=== PATIENT | female | born 1990 | race African-American/Black ===

== ENCOUNTER 2020-10-08 09:07 | Inpatient (IN) | payer OTHER ==
--- NOTE | 2020-10-01 14:45 | History and Physical Report ---
History of Present Illness Date of examination: 10/01/20 Chief complaint: repeat c/s History of present illness: 29 yo at 39w4d c/b hx prior c/s x 1, elevated 1hr GTT, nl 3hr GTT, Vit D deficiency presents for repeat c section. Denies labor complaints or PIH symptoms. +FM. Past History Past Medical History: no pertinent history Past Surgical History: section (x1) Family/Genetic History: hypertension Social history: no significant social history - Obstetrical History : 2 Para: 1 Hx # Term Pregnancies: 1 Number of Living Children: 1 Review of Systems All systems: negative (expect HPI) - Physical Exam Abdomen: Positive: normal appearance, normal bowel sounds, other (gravid) - Obstetrical FHR: category 1 Uterine Contraction Monitor Mode: External Uterine Contraction Pattern: Absent Results All other labs normal. Assessment and Plan - Patient Problems (1) H/O section Status: Acute Plan to address problem: --To OR for repeat c section --Consented in the chart --Questions solicited and answered --For future fertility, --GBS neg
[2020-10-08] MEDS ORDERED: LACTATED RINGERS 2,000 ML ONE (10:30)
[2020-10-08] MEDS: LACTATED RINGERS 1,000 ML IV SCH ×2 (10:37→17:59)
[2020-10-08 10:44] LABS: Basophils % (Auto) 0.2 % (0.0-1.8); Eosinophils # (Auto) 0.1 K/mm3 (0.0-0.4); Eosinophils % (Auto) 0.9 % (0.0-4.3); Hematocrit 40.3 % (30.3-42.9); Hemoglobin 13.3 gm/dl (10.1-14.3); Lymphocytes # (Auto) 1.4 K/mm3 (1.2-5.4); Lymphocytes % (Auto) 18.7 % (13.4-35.0); Mean Corpuscular HGB Conc 33 % (30-34); Mean Corpuscular Volume 94 fl (79-97); Monocytes # (Auto) 0.6 K/mm3 (0.0-0.8); Monocytes % (Auto) 7.7 % (0.0-7.3); Platelet Count 227 K/mm3 (140-440); Red Cell Distribution Width 13.9 % (13.2-15.2)
[2020-10-08] MEDS ORDERED: ceFAZolin/Water 2 GM/20 ML 2 GM/20 ML SYRINGE IV NR (11:00)
[2020-10-08] MEDS ORDERED: METOCLOPRAMIDE 10 MG/2 ML INJ IV NR (11:00)
[2020-10-08] MEDS ORDERED: BICITRA ORAL LIQD 30ML PO NR (11:00)
[2020-10-08] MEDS ORDERED: OXYTOCIN DRIP 30 UNITS/500 ML BAG IV SCH ×2 (11:00→14:00)
[2020-10-08] MEDS ORDERED: FAMOTIDINE 20 MG/2 ML INJ IV NR (11:00)
--- NOTE | 2020-10-08 11:00 | Anesthesia Consultation ---
Anesthesia Consult and Med Hx Date of service: 10/08/20 - Airway Anesthetic Teeth Evaluation: Good ROM Head & Neck: Adequate Mental/Hyoid Distance: Adequate Mallampati Class: Class II Intubation Access Assessment: Probably Good - Pulmonary Exam CTA: Yes - Cardiac Exam Cardiac Exam: RRR - Pre-Operative Health Status ASA Pre-Surgery Classification: ASA2 Proposed Anesthetic Plan: Spinal - Pulmonary Hx Asthma: No - Cardiovascular System Hx Hypertension: No - Central Nervous System Hx Seizures: No Hx Psychiatric Problems: No - Endocrine Hx Renal Disease: No Hx Hypothyroidism: No Hx Hyperthyroidism: No - Hematic Hx Anemia: No Hx Sickle Cell Disease: No - Other Systems Hx Alcohol Use: No
--- NOTE | 2020-10-08 11:01 | Anesthesia Day of Surgery ---
Anesthesia Day of Surgery - Day of Surgery Patient Examined: Yes Patient H&P Reviewed: Yes Patient is NPO: Yes
[2020-10-08] MEDS ORDERED: SODIUM CHLORIDE 0.9% IRR 1,500 ML BOTTLE IR ONE (12:00)
[2020-10-08] MEDS ORDERED: WATER FOR IRRIG STERILE 1,500 ML BOTTLE IR ONE (12:00)
[2020-10-08] MEDS ORDERED: ceFAZolin/STERILE WATER 2 GM/20 ML SYRINGE IV ONE (12:00)
[2020-10-08] MEDS ORDERED: ONDANSETRON 4 MG/2 ML INJ ONE (12:05)
[2020-10-08] MEDS ORDERED: PHENYLEPHRINE/NS 1,000 MCG/10 ML SYRINGE (OR USE) IV ONE ×2 (12:05→12:15)
[2020-10-08] MEDS ORDERED: dexAMETHasone 20 MG/5 ML VIAL ONE (12:05)
[2020-10-08] MEDS ORDERED: SODIUM CHLORIDE 0.9% 100 ML ONE (12:05)
[2020-10-08] MEDS ORDERED: BUPIVACAINE/PF (0.5%) 5 MG/1 ML 30 ML VIAL INFILTRATI ONE (12:05)
[2020-10-08] MEDS ORDERED: KETOROLAC 30 MG/1 ML INJ ONE (12:05)
[2020-10-08] MEDS ORDERED: HETASTARCH 6% 500 ML IV ONE (12:05)
[2020-10-08] MEDS ORDERED: LACTATED RINGERS 1,000 ML ONE ×2 (12:31→12:58)
--- NOTE | 2020-10-08 13:05 | Procedure Note ---
OB Delivery Note - Delivery Date of Delivery: 10/08/20 Surgeon: EMANUEL GUTIERRES JR Estimated blood loss: other (800cc) - Section Preop diagnosis: repeat Postop diagnosis: same section procedure: section, repeat low transverse Disposition: PACU Complications: none Narrative: Indication: 30-year-old at 39 weeks 4 days presenting for repeat C- section. Findings: Normal uterus, tubes and ovaries. Clear fluid. No nuchal cord. Delivery male infant at 1223 Weight 3893 g Length 19.5 inches Apgars 8/9 Estimated blood loss 800 cc Urine output 200 cc Intraoperative IV fluids 1500 cc Procedure: Patient was taken to the operating room prepped and draped in the usual sterile fashion. Pfannenstiel skin incision was made and carried down to the underlying fascia. Fascia was incised and the incision was distended bilaterally. Rectus fascia was dissected off the rectus muscle superiorly and inferiorly. Peritoneum was identified and entered. Peritoneal incision extended superiorly and inferiorly. The bladder was visualized. The bladder blade was placed. Uterine hysterotomy incision was made and extended bilaterally. The baby was delivered in the typical vertex fashion. Baby was bulb suction at delivery. The cord was cut and clamped and handed off to the team. The placenta was delivered spontaneously. The uterus was exteriorized and cleared of all clots and debris. Uterine incision was closed with a 0 Vicryl in a running locked fashion. Two [id number] sutures were used to create hemostasis on the left lateral aspect of the uterine repair using 0 Vicryl. Good hemostasis was noted. The urine was noted to be clear. Uterus, tubes, and ovaries were returned to the abdominal cavity. Bilateral gutters were cleared and the abdomen and pelvis were irrigated. Good hemostasis noted. The rectus muscle was reapproximated with 2-0 Vicryl. Attention was directed towards the rectus fascia which was reapproximated with 0 PDS in a running fashion. Skin was closed with a 4-0 Vicryl in a subcuticular fashion. The p rocedure was completed and the patient tolerated the procedure well. All instruments and lap counts were correct x2. - Infant A at 1 minute: 8 at 5 minutes: 9 Infant Gender: Male
[2020-10-08] MEDS ORDERED: HYDROCORTISONE 25 MG RECTAL SUPP PR PRN (13:08)
[2020-10-08] MEDS ORDERED: WITCH HAZEL/ GLYCERIN PAD TP PRN (13:08)
--- NOTE | 2020-10-08 13:32 | Post Anesthesia Evaluation ---
- Post Anesthesia Evaluation Patient Participated: Yes Airway Patent: Yes Stable Respiratory Function: Yes Nausea/Vomiting: No Temp > 96.8F: Yes Pain Manageable: Yes Adequeate Hydration: Yes Anesthesia Complications: No Block Receding Appropriately: Yes
--- NOTE | 2020-10-08 13:33 | Progress Note ---
Regional Anesthesia Block - Regional Anesthesia Block Start Time: 13:20 Stop Time: :25 Performed By:: STEFANI SINHA Procedure: U/S guided bilateral tap block performed for post-operative pain requested by Dr. Grewal. H&P & labs reviewed. Procedure explained, questions answered, consent obtained. Patient in the supine position with ekg, blood pressure cuff and pulse ox on and working in PACU. Timeout performed immediately before start of procedure. Probe placed in the mid-axillary line and the external oblique, internal oblique, and transverse abdominus muscles identified. Skin was cleansed with 0.5% Chlorahexadine and allowed to dry. A 4" 20 G Coy echogenic needle was advanced in plane until the tip was in the fascial plane between the internal oblique and the transverse abdominus. After negative aspiration 35 ml/side of [30 ml 0.5% Bupivacaine], [50 mcg dexmedetomidine], [10 mg dexamethasone], and [40 ml sterile saline] was injected in 5 ml increments with negative aspiration in between. Patient tolerated procedure well.
[2020-10-08] MEDS ORDERED: PROMETHAZINE 25 MG RECT SUPP PR PRN (14:00)
[2020-10-08] MEDS ORDERED: MORPHINE 4 MG/1 ML INJ IV PRN (14:00)
[2020-10-08] MEDS ORDERED: LANOLIN/ZINC/DIMETHICONE (LANSINOH) 7 GM TP PRN (14:00)
[2020-10-08] MEDS ORDERED: SIMETHICONE 80 MG CHEW TAB PO PRN (14:00)
[2020-10-08] MEDS ORDERED: ONDANSETRON 4 MG/2 ML INJ IV PRN (14:00)
[2020-10-08] MEDS ORDERED: NALOXONE 0.4 MG/1 ML INJ IV PRN (14:00)
[2020-10-08] MEDS: KETOROLAC 30 MG/1 ML INJ IV SCH (17:59)
[2020-10-08] MEDS ORDERED: SENNOSIDES 8.6 MG TAB PO PRN (22:00)
[2020-10-09 01:14] LABS: Hematocrit 36.9 % (30.3-42.9); Hemoglobin 12.5 gm/dl (10.1-14.3)
[2020-10-09] MEDS: KETOROLAC 30 MG/1 ML INJ IV SCH ×2 (04:46→04:50)
[2020-10-09] MEDS: oxyCODONE /ACETAMINOPHEN 5-325MG TAB PO PRN ×2 (11:30→17:39)
[2020-10-09] MEDS: IBUPROFEN 800 MG TAB PO PRN (15:26)
--- NOTE | 2020-10-09 19:48 | Progress Note ---
Assessment and Plan POD # 1 A: S/P LTCS p: Continue monitoring Encourage ambulation D/c home tomm if stable and pt is interested in going Subjective - Subjective Date of service: 10/09/20 Patient reports: appetite normal, voiding normally, pain well controlled, flatus, ambulating normally Carlos: doing well, bottle feeding Objective - Vital Signs Latest vital signs: Vital Signs Temp Pulse Resp BP BP Pulse Ox 10/09/20 16:05 97.8 F 80 18 110/75 97 10/09/20 12:20 97.7 F 85 18 101/65 100 10/09/20 08:15 97.4 F L 81 18 109/67 98 10/09/20 04:46 20 10/09/20 00:30 98.6 F 78 18 114/78 10/08/20 20:52 98.0 F 85 18 108/75 99 Intake and Output 10/09/20 10/09/20 10/09/20 06:59 14:59 22:59 Output Total 1300 400 Balance -1300 -400 Output: Urine 1300 400 Indwelling Catheter 1300 Void 400 Other: Total, Output Amount 400 400 # Voids Void 1 - Exam Breasts: Present: normal Abdomen: Present: normal appearance, soft, normal bowel sounds Vulva: both: normal Uterus: Present: normal, firm, fundal height below umbilicus, other (scant rubra lochia) Extremities: Present: normal Incision: Present: normal, dry, intact, dressed
[2020-10-10] MEDS: IBUPROFEN 800 MG TAB PO PRN ×2 (00:03→20:26)
[2020-10-10] MEDS: oxyCODONE /ACETAMINOPHEN 5-325MG TAB PO PRN ×2 (05:32→17:47)
--- NOTE | 2020-10-10 10:50 | Progress Note ---
Assessment and Plan - Patient Problems (1) Status post repeat low transverse section Current Visit: Yes Status: Acute Plan to address problem: Continue routine PP orders Keep incision site clean and dry, remove today after shower Anticipate d/c home tomorrow if stable F/U in office in 14 days for incision check Subjective - Subjective Date of service: 10/10/20 Principal diagnosis: S/P repeat C/S; POD#2 Interval history: See admission H & P, OB operative note and PP progress notes Patient reports: appetite normal, voiding normally, pain well controlled, ambulating normally, no flatus, no bowel movement : doing well, bottle feeding Objective - Vital Signs Latest vital signs: Vital Signs Temp Pulse Resp BP BP Pulse Ox 10/10/20 08:06 97.6 F 81 18 92/58 97 10/10/20 05:32 16 10/10/20 00:30 98.6 F 64 18 105/72 10/10/20 00:03 20 10/09/20 20:22 98.0 F 66 18 105/67 98 10/09/20 16:05 97.8 F 80 18 110/75 97 10/09/20 12:20 97.7 F 85 18 101/65 100 Intake and Output 10/09/20 10/10/20 10/10/20 23:59 07:59 15:59 Intake Total 300 500 Balance 300 500 Intake: Oral 200 Intake, Free Water 300 300 Other: Total, Intake Amount 200 # Voids Void 1 1 - Exam Breasts: Present: normal Cardiovascular: Present: Regular rate Lungs: Present: Normal air movement Abdomen: Present: soft, tenderness Uterus: Present: firm, fundal height below umbilicus (U-2) Extremities: Present: normal Deep Tendon Reflex Grade: Normal +2 Incision: Present: dressed (no shawdow drainage or bleeding noted)
--- NOTE | 2020-10-10 10:52 | Discharge Summary ---
Providers - Providers Date of Admission: 10/08/20 09:07 Date of discharge: 10/11/20 Attending physician: EMANUEL GUTIERRES JR, MD Primary care physician: EMANUEL GUTIERRES JR, MD Hospitalization Reason for admission: section Delivery: Procedure: repeat low transverse Episiotomy: none Laceration: none Incision: dressed (no shadow drainage or bleeding noted) Other procedures: none complications: none Discharge diagnosis: IUP at term delivered baby: male Hospital course: See admission H & P, OB operative note and PP progress notes Condition at discharge: Stable Disposition: DC-01 TO HOME OR SELFCARE - Discharge Diagnoses (1) Status post repeat low transverse section Status: Acute Plan - Discharge Medications Prescriptions: Ibuprofen [Motrin 800 MG tab] 800 mg PO Q6H PRN #30 tablet PRN Reason: Pain, Mild (1-3) oxyCODONE /ACETAMINOPHEN [Percocet 5/325 mg] 1 tab PO Q6H PRN #30 tablet PRN Reason: Pain, Moderate (4-6) - Provider Discharge Summary Activity: routine, no sex for 6 weeks, no heavy lifting 4 weeks, no strenuous exercise Diet: other (Iron rich diet) Instructions: routine Additional instructions: [] Smoking cessation referral if applicable(refer to patient education folder for contact #) [] Refer to [facility] Booklet Call your doctor immediately for: * Fever > 100.5 * Heavy vaginal bleeding ( >1 pad per hour) * Severe persistent headache * Shortness of breath * Reddened, hot, painful area to leg or breast * Drainage or odor from incision. * Keep incision clean and dry at all times and follow doctor's instructions r egarding bathing/showering - Follow up plan Follow up: EMANUEL GUTIERRES JR, MD [Primary Care Provider] - 14 Days Forms: [facility] Discharge Summary
[2020-10-10] MEDS: MAGNESIUM HYDROXIDE (MOM) ORAL LIQD UDC PO PRN ×2 (17:47→20:26)
[2020-10-11] MEDS: IBUPROFEN 800 MG TAB PO PRN ×2 (05:50→11:52)
[2020-10-11 14:00] VITALS: BP 113/75
== END 2020-10-11 14:00 | disposition home or self-care (01) | DRG 788 ==
LOC: APU 09:07 → OB 15:07
PROVIDERS: ADMIT Obstetrics & Gynecology; ATTEND Obstetrics & Gynecology
PROC: 10D00Z1 Extraction of Products of Conception, Low, Open Approach (ICD-10-PCS; principal; 2020-10-08)
DX: O34.211 Maternal care for low transverse scar from previous cesarean delivery (principal); Z37.0 Single live birth; Z3A.39 39 weeks gestation of pregnancy; Z20.828 Contact with and (suspected) exposure to other viral communicable diseases
CPT/HCPCS: 36415; 85014; 85018; 85025; 86706; 86762; 86850; 86900; 86901; G0378; J0690; J1100; J1885; J2370; J2405; J2765; J3490; J7120; U0003